=== PATIENT | male | born 1955 | race Caucasian/White ===

== ENCOUNTER → 2019-07-24 | Day surgery (SDC) | payer OTHER ==
[~2019-07-24] MED LIST: AUGMENTIN 875875 M1 PO; NORCO 5-325 TA1 EAC1 PO
[2019-07-24 06:37] LABS: HEMATOCRIT 45.6 % (42.0-52.0); HEMOGLOBIN 15.4 gm/dL (14.0-18.0); MCH 29.6 pg (26.0-34.0); MCHC 33.7 g/dL (28.0-37.0); MCV 87.9 fL (80.0-100.0); MPV 9.1 fl. (7.2-11.1); RBC 5.19 mil/uL (4.50-6.00); RDW-CV 14.5 % (10.5-14.5); WBC 7.2 thou/uL (4.0-11.0)
[2019-07-24 06:47] LABS: CALCIUM 9.3 mg/dL (8.5-10.1); CREATININE 1.2 mg/dL (0.6-1.3); POTASSIUM 3.9 mmol/L (3.5-5.1)
[2019-07-24 06:51] LABS: TOTAL BILIRUBIN 0.3 mg/dL (<0.1-1.0); TOTAL PROTEIN 7.6 g/dL (6.4-8.2)
--- NOTE | 2019-07-24 11:09 | EKG ---
[place] [address] ELECTROCARDIOGRAM REPORT Name: GRISELDA DUMONT [id number] Admission: 07/24/19 Attend Phys: Neymar Smith DO Discharge: Date of : 59 Report #: [id number] THIS REPORT FOR: //name// [facility] Test Date: 2019-07-24 Test Time: 07:37:12 Pat Name: GRISELDA DUMONT Department: Room: Gender: Washer Off: : 1955 Requested By: Neymar Smith Order Number: [id number] Reading MD: Rob Davila Measurements Intervals [place] Rate: 68 P: 33 ID: 142 QRS: -30 QRSD: 102 T: 14 QT: 402 QTc: 428 Interpretive Statements Sinus rhythm Left axis deviation No previous ECG available for comparison Electronically Signed On 07-24-2019 11:09:29 TUNNEL ELASTIC OPERATOR LOCKSTITCH by Rob Davila [email or web address] <ELECTRONICALLY SIGNED> By: Rob Davila MD, [facility] 07/24/19 1109 0737 0737 Rob Davila MD, FACC /EPI
--- NOTE | 2019-08-19 12:40 | OP ---
[address] [address] OPERATIVE REPORT Name: JULIAGRISELDAWATSON BACH Room: [facility]#: [id number] Admission: 07/24/19 Attend Phys: Neymar Smith DO Discharge: Date of : 59 Report #: [id number] THIS REPORT FOR: //name// CC: Vy Smith DATE OF SERVICE: 07/24/2019 PREOPERATIVE DIAGNOSES: Bilateral carpal tunnel syndrome, left worse than right. POSTOPERATIVE DIAGNOSES: Bilateral carpal tunnel syndrome, left worse than right. PROCEDURE: Left carpal tunnel release. SURGEON: Neymar Smith DO PAIN MANAGEMENT PHYSICIAN: DO Wilber ANESTHESIA: General anesthetic with local. ESTIMATED BLOOD LOSS: Less than 2 mL. COMPLICATIONS: None. SPECIMENS: None. PREOPERATIVE INDICATIONS: The patient is a 64-year-old male, right hand dominant, with severe bilateral carpal tunnel syndrome. He is here today for elective left carpal tunnel release. Risks and complications were discussed in detail with this patient including, but not limited to neurovascular damage, infection, fracture, need for further surgery, failure of the repair, return of the carpal tunnel, weakness, chronic pain, problems secondary to anesthesia, blood loss, even myocardial infarction and . Signed informed consent has been attached to chart, may refer to, and his hand was marked preoperatively for timeout technique. DESCRIPTION OF PROCEDURE: The patient was taken to the operating suite and placed on the operating table in the supine position. Following general LMA anesthetic, the left hand was prepped and draped in the usual sterile fashion with tourniquet to proximal left humerus. After timeout technique, the left upper extremity was exsanguinated with an Esmarch, tourniquet was inflated to 250 mmHg pressure. Esmarch was removed. The hand was placed in a lead hand for positioning. The outline of the incision was made, initially a small incision of roughly 2 cm; however, after [place] [address] OPERATIVE REPORT Name: GRISELDA DUMONT Room: [facility]#: [id number] Admission: 07/24/19 Attend Phys: Neymar Smith DO Discharge: Date of : 59 Report #: [id number] magnification, the nerve was not readily visible. Therefore, a standard open procedure was performed with a zigzag incision crossing the wrist crease at 60 degrees. The incision was carried through skin and subcutaneous tissue down to the flexor retinaculum. The flexor retinaculum was seen in its entirety with appropriate retractors in place under loupe magnification. Median nerve was visualized as it enters the flexor retinaculum proximally and the flexor retinaculum was then incised from proximal to distal throughout its course, bringing the median nerve into view. There was hyperemic blush noted to the median nerve upon release, as well as hourglass deformity to the median nerve in the carpal canal. Otherwise, no lacerations, masses or other problems noted. Copious irrigation carried out throughout the incision. The incision was then closed with 5-0 nylon simple interrupted fashion sutures. Xeroform gauze, 4 x 4 gauze, bulky Stoner dressing were applied. The patient tolerated the procedure well and was taken to recovery in stable condition. No complications were encountered. <ELECTRONICALLY SIGNED> By: Christopher Sanchez DO 08/19/19 1240 1514 [id number] Smith DO /bonny
== END | disposition home or self-care (01) ==
LOC: M.SUR 05:55
PROVIDERS: Orthopaedic Surgery
DX: G56.03 Carpal tunnel syndrome, bilateral upper limbs (principal); Z79.891 Long term (current) use of opiate analgesic; Z88.8 Allergy status to other drugs, medicaments and biological substances

== ENCOUNTER 2021-05-02 12:41 | Outpatient (CLI) | payer OTHER ==
[~2021-05-02] VITALS: Ht 188 cm; Wt 113.4 kg
[2021-05-02] MEDS ORDERED: HYDROCODON-ACE1 EAC7 PO (13:03)
[2021-05-02] MEDS ORDERED: XARELTO15 MG PO (13:03)
[2021-05-02] MEDS ORDERED: XARELTO20 MG PO (13:03)
[2021-05-02 13:11] LABS: ABSOLUTE BASOPHILS 0.2 thou/uL (0.0-0.2); ABSOLUTE EOSINOPHILS 0.1 thou/uL (0.0-0.7); ABSOLUTE LYMPHOCYTES 1.2 thou/uL (0.8-5.3); ABSOLUTE NEUTROPHILS 11.3 thou/uL (1.6-8.1); BASOPHILS 1.2 %; EOSINOPHILS 0.4 %; HEMATOCRIT 44.2 % (42.0-52.0); HEMOGLOBIN 14.5 gm/dL (14.0-18.0); LYMPHOCYTES 8.5 %; MCH 28.7 pg (26.0-34.0); MCHC 32.7 g/dL (28.0-37.0); MCV 87.8 fL (80.0-100.0); MONOCYTES 7.2 %; MPV 7.8 fl. (7.2-11.1); NUCLEATED RBCS 0 /100WBC; PLATELET COUNT* 161 thou/uL (150-400); POLYS 82.7 %; RBC 5.04 mil/uL (4.50-6.00); RDW-CV 15.5 % (10.5-14.5); WBC 13.6 thou/uL (4.0-11.0)
[2021-05-02 13:20] LABS: CALCIUM 8.9 mg/dL (8.5-10.1); CREATININE 1.2 mg/dL (0.6-1.3)
[2021-05-02 13:25] LABS: ALBUMIN 3.3 g/dL (3.4-5.0); TOTAL BILIRUBIN 1.2 mg/dL (<0.1-1.0); TOTAL PROTEIN 7.2 g/dL (6.4-8.2)
[2021-05-02 15:14] VITALS: BP 114/68
== END 2021-05-02 15:10 | disposition home or self-care (01) ==
LOC: M.ERS 15:10
PROVIDERS: Family Medicine; ATTEND Nurse Practitioner Family
DX: I82.413 Acute embolism and thrombosis of femoral vein, bilateral (principal); I82.433 Acute embolism and thrombosis of popliteal vein, bilateral; I26.99 Other pulmonary embolism without acute cor pulmonale; R06.02 Shortness of breath

== ENCOUNTER → 2021-08-16 | Outpatient (CLI) | payer OTHER ==
[~2021-08-16] MED LIST changes: +HYDROCODON-ACE1 EAC7 PO; +XARELTO15 MG PO; +XARELTO20 MG PO
== END ==
LOC: M.ULTRA 09:46
PROVIDERS: ATTEND Nurse Practitioner Family
DX: I82.431 Acute embolism and thrombosis of right popliteal vein (principal)